=== PATIENT | male | born 1980 | race Two or more races ===

== ENCOUNTER 2016-12-11 15:17 | Emergency (ER) | payer SELFPAY ==
[~2016-12-11] VITALS: Ht 185.4 cm; Wt 82.0 kg
[2016-12-11 16:18] VITALS: BP 100/50
== END 2016-12-12 01:24 | disposition left against medical advice (07) ==
LOC: ER 15:17
DX: R21 Rash and other nonspecific skin eruption (principal); Z53.21 Procedure and treatment not carried out due to patient leaving prior to being seen by health care provider

== ENCOUNTER 2017-02-03 13:12 | Emergency (ER) | payer MEDICAID, OTHER ==
[~2017-02-03] VITALS: Ht 177.8 cm; Wt 70.0 kg
[2017-02-03 13:13] VITALS: BP 116/71
== END 2017-02-03 15:51 | disposition left against medical advice (07) ==
LOC: ER 13:23
DX: B86 Scabies (principal); Z53.21 Procedure and treatment not carried out due to patient leaving prior to being seen by health care provider

== ENCOUNTER 2017-09-17 | Emergency (ER) | payer OTHER ==
[~2017-09-17] VITALS: Ht 182.9 cm; Wt 91.0 kg
[2017-09-17 02:34] VITALS: BP 147/75
[2017-09-17] MEDS ORDERED: SODIUM CHLORIDE 0.9% 500 ML IV ONE (03:04)
[2017-09-17] MEDS ORDERED: KETOROLAC 30MG/ML VIAL IV ONE (03:15)
[2017-09-17] MEDS ORDERED: VANCOMYCIN 1 G PREMIX 200 ML IV SCH (03:15)
[2017-09-17] MEDS ORDERED: CEFTRIAXONE 1 G PREMIX 50 ML IV ONE (03:15)
== END 2017-09-17 03:30 | disposition left against medical advice (07) ==
LOC: ER
DX: M65.841 Other synovitis and tenosynovitis, right hand (principal); F17.210 Nicotine dependence, cigarettes, uncomplicated; Z59.0 Homelessness
CPT/HCPCS: 99281; J7030

== ENCOUNTER 2017-09-20 18:41 | Emergency (ER) | payer OTHER ==
[~2017-09-20] VITALS: Ht 172.7 cm; Wt 75.0 kg
[2017-09-20 18:48] VITALS: BP 138/81
== END 2017-09-20 21:00 | disposition left against medical advice (07) ==
LOC: ER 19:50
DX: M79.644 Pain in right finger(s) (principal); Z53.21 Procedure and treatment not carried out due to patient leaving prior to being seen by health care provider

== ENCOUNTER 2017-09-23 19:11 | Emergency (ER) | payer OTHER ==
[~2017-09-23] VITALS: Ht 175.3 cm; Wt 75.0 kg
[2017-09-23 19:15] VITALS: BP 111/64
== END 2017-09-23 21:42 | disposition left against medical advice (07) ==
LOC: ER 19:18
DX: Z53.21 Procedure and treatment not carried out due to patient leaving prior to being seen by health care provider (principal)

== ENCOUNTER 2025-03-31 16:57 | Emergency (ER) | payer OTHER ==
[~2025-03-31] VITALS: Ht 185.4 cm; Wt 81.0 kg
[2025-03-31 17:02] VITALS: O2SAT 98
[2025-03-31] MEDS ORDERED: NALO4SPR BOTHNSTRLS (19:39)
[2025-03-31 20:00] VITALS: BP 102/61; PULSE 61; RESP 15; TEMP 36.7; O2SAT 98
== END 2025-03-31 20:00 | disposition home or self-care (01) ==
LOC: ER 16:57
DX: T40.411A Poisoning by fentanyl or fentanyl analogs, accidental (unintentional), initial encounter (principal); F11.90 Opioid use, unspecified, uncomplicated; Y92.89 Other specified places as the place of occurrence of the external cause
CPT/HCPCS: 93005; 99283